=== PATIENT | female | born 1975 | race Caucasian/White ===

== ENCOUNTER → 2018-12-22 | Outpatient (CLI) | payer BC ==
[~2018-12-22] MED LIST: PRENATAL VITAMI1 TA5 PO
== END ==
LOC: MC.RAD 16:10
DX: Z12.31 Encounter for screening mammogram for malignant neoplasm of breast (principal); N64.89 Other specified disorders of breast

== ENCOUNTER → 2018-12-28 | Outpatient (CLI) | payer BC | LOC: MC.RAD 07:58 | DX: N64.89 Other specified disorders of breast (principal) ==

== ENCOUNTER 2022-09-10 10:11 | Day surgery (SDC) | payer BC ==
[~2022-09-10] VITALS: Ht 162.6 cm; Wt 62.9 kg
[2022-09-10 10:59] VITALS: BP 118/92; PULSE 76; TEMP 97.4
[2022-09-10] MEDS ORDERED: SYNTHROID0.075 MG/T PO (11:36)
[2022-09-10] MEDS ORDERED: TYLENOL 500MG500 MG PO (11:38)
--- NOTE | 2022-09-10 11:52 | NUR ---
Patient continues to await procedure and spouse is in the room. Call light in reach.
[2022-09-10 13:00] VITALS: BP 105/67; PULSE 84; TEMP 97.4
[2022-09-10 13:15] VITALS: BP 108/73; PULSE 68
--- NOTE | 2022-09-10 13:25 | NUR ---
1255 DR. JUSTICE HERE. VISITS WITH PATIENT'S 1300 RETURNS TO ROOM 5 PER CART. AWAKE, ALERT. RESP UNLABORED. AMBULATES TO RECLINER WITH STANDBY ASSIST. DENIES NAUSEA OR ABD PAIN. VITAL SIGNS OBTAINED. CALL LIGHT AT SIDE. IN ROOM 1310 TOLERATES PO JUICE AND PUDDING WITHOUT NAUSEA 1315 DISCHARGE INSTRUCTIONS REVIEWED. PATIENT VERBALIZES UNDERSTANDING. COPY PROVIDED IN DISCHARGE FOLDER 1320 DRESSES SELF
== END 2022-09-10 13:25 | disposition home or self-care (01) ==
LOC: SDCO 10:11
DX: Z12.11 Encounter for screening for malignant neoplasm of colon (principal)
CPT/HCPCS: J2704; J7120

== ENCOUNTER → 2023-08-16 | Outpatient (CLI) | payer BC ==
[2005-04-24 07:15] VITALS: BP 119/63; PULSE 68; TEMP 98
[~2023-08-16] MED LIST changes: +SYNTHROID0.075 MG/T PO; +TYLENOL 500MG500 MG PO
== END ==
LOC: MC.RAD 11:18
DX: Z12.31 Encounter for screening mammogram for malignant neoplasm of breast (principal)